=== PATIENT | female | born 1985 | race Caucasian/White ===

== ENCOUNTER 2019-05-03 14:14 | Emergency (ER) | payer OTHER ==
--- NOTE | 2019-05-03 15:01 | EDM.PDOC ---
ED HPI GENERAL MEDICAL PROBLEM - General Chief Complaint: Lower Extremity Injury/Pain Stated Complaint: FELL AFTER GETTING OFF 4 [place] Time Seen by Provider: 05/03/19 14:45 Source of Information: Reports: Patient History Limitations: Reports: No Limitations - History of Present Illness INITIAL COMMENTS - FREE TEXT/NARRATIVE: 33 yo female here with lateral/distal R leg pain after falling getting off a 4 [place]. Took some ibuprofen before coming to the ER. No other injuries. 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 Right Ankle Pain Score (Numeric/FACES): 8 - Related Data Allergies Allergy/AdvReac Type Severity Reaction Status Date / Time No Known Allergies Allergy Verified 05/03/19 14:51 Home Meds: Home Meds NK [No Known Home Meds] 05/03/19 [History] Past Medical History [employer] History: Reports: Musculoskeletal History: Reports: Fracture Neurological History: Reports: Migraines Social & Family History - Tobacco Use Smoking Status *Q: Never Smoker - Recreational Drug Use Recreational Drug Use: Yes Recreational Drug Type: Reports: Marijuana/Hashish Review of Systems - Review of Systems Review Of Systems: See Below Constitutional: Reports: No Symptoms Musculoskeletal: Reports: Leg Pain (R distal). Denies: Foot Pain Skin: Reports: No Symptoms Neurological: Reports: No Symptoms ED EXAM, GENERAL - Physical Exam Exam: See Below Exam Limited By: No Limitations General Appearance: Alert, WD/WN, No Apparent Distress Extremities: Normal Inspection, No Pedal Edema, Leg Pain (lateral/distal fibula area tender with palpation. ), Limited Range of Motion (due to pain). No: Normal Range of Motion, Non-Tender, Pedal Edema Neurological: Alert, Oriented, CN II-XII Intact, Normal Cognition, No Motor/ Sensory Deficits Psychiatric: Normal Affect, Normal Mood Skin Exam: Warm, Dry, Intact, Normal Color, No Rash Course - Vital Signs Text/Narrative:: Cam walker given/applied by RN Last Recorded V/S: Last Vital Signs Temp 36.0 C 05/03/19 14:50 Pulse 62 05/03/19 14:50 Resp 18 05/03/19 14:50 BP 128/67 05/03/19 14:50 Pulse Ox 98 05/03/19 14:50 - Orders/Labs/Meds Orders: Active Orders 24 hr Category Date Time Status Tibia Fibula Rt [CR] Stat Exams 05/03/19 14:56 Taken - Radiology Interpretation Free Text/Narrative:: R tib/fib O-niap-[id number] fibula fx without displacement. Departure - Departure Time of Disposition: 16:54 Disposition: Home, Self-Care 01 Condition: Good Clinical Impression: Closed fracture of ankle Fracture of distal fibula Qualifiers: Encounter type: initial encounter Fracture type: closed Fracture morphology: other fracture Laterality: right Qualified Code(s): S82.831A - Other fracture of upper and lower end of right fibula, initial encounter for closed fracture - Discharge Information *PRESCRIPTION DRUG MONITORING PROGRAM REVIEWED*: No *COPY OF PRESCRIPTION DRUG MONITORING REPORT IN PATIENT VIJI: No Instructions: Ankle Fracture Referrals: PCP,None [Primary Care Provider] - Forms: ED Department Discharge Additional Instructions: Elevate to reduce swelling. Take ibuprofen and/or acetaminophen for pain relief. Use your Cam Walker with any weight bearing. F/U with your provider for recheck this next week with your X-rays. - My Orders Last 24 Hours: My Active Orders 05/03/19 14:56 Tibia Fibula Rt [CR] Stat - Assessment/Plan Last 24 Hours: My Active Orders 05/03/19 14:56 Tibia Fibula Rt [CR] Stat
--- NOTE | 2019-05-03 17:01 | CRLCR ---
Indication: Fell getting off 4 [place]antiago. Technique: Two views of the right lower leg were obtained. Comparison: None Findings: A fracture of the distal fibula is identified. The ankle mortise is intact. The talar dome is intact. Impression: Distal fibular fracture Dictated by Lurdes Iqbal MD @ May 03 2019 4:59PM Signed by Dr. Lurdes Iqbal @ May 03 2019 5:00PM
[2019-05-03] MEDS ORDERED: Ketorolac 60 MG/2 ML SDV IM ONE (17:10)
== END 2019-05-03 17:36 | disposition home or self-care (01) ==
LOC: JP.ED 14:14
DX: S82.831A Other fracture of upper and lower end of right fibula, initial encounter for closed fracture (principal); W17.89XA Other fall from one level to another, initial encounter
CPT/HCPCS: 73590-RT; 96372; 99283-25; J1885